=== PATIENT | female | born 1985 | race African-American/Black ===

== ENCOUNTER 2024-02-11 08:31 | Inpatient (IN) | payer SELFPAY ==
[~2024-02-11] VITALS: Ht 165.1 cm; Wt 48.1 kg
[2024-02-11] MEDS: ONDANSETRON HCL 4MG/2ML INJ IV STA (09:39)
[2024-02-11] MEDS: MORPHINE SULFATE 4 MG/ML INJ (FOR IV/IM USE) IV STA (09:39)
[2024-02-11 09:41] LABS: BASOPHILS % 2.2 % (0.0-2.0); CHLORIDE 110 mEq/L (98-107); EOSINOPHILS % 0.7 % (0.0-5.0); HEMOGLOBIN. 12.1 g/dL (12.0-16.0); LYMPHOCYTES % 25.7 % (20.0-50.0); MEAN CORPUSCULAR HEMOGLOBIN 29.1 pg (28.0-32.0); MEAN CORPUSCULAR HGB CONC 32.6 g/dL (31.0-37.0); MEAN CORPUSCULAR VOLUME 89.2 fL (81.0-99.0); MEAN PLATELET VOLUME 9.8 fl (7.4-10.4); MONOCYTES % 6.2 % (2.0-8.0); NEUTROPHILS % 65.2 % (40.0-76.0); PLATELET 273 x1000/uL (130-400); POTASSIUM 3.6 mEq/L (3.5-5.1); RED BLOOD CELL COUNT 4.15 mill/uL (4.2-5.4); RED CELL DISTRIBUTION WIDTH 14.9 % (11.6-14.6); SODIUM 141 mEq/L (136-145); WHITE BLOOD COUNT 4.6 x1000/uL (4.5-11.0)
[2024-02-11 09:42] LABS: CALCIUM 9.5 mg/dL (8.7-10.4); CARBON DIOXIDE 21 mEq/L (21-32)
[2024-02-11 09:47] LABS: CREATININE 0.8 mg/dL (0.6-1.0); GLUCOSE 123 mg/dL (70-105); UREA NITROGEN BLOOD 10 mg/dL (9-23)
[2024-02-11 09:49] LABS: ALANINE AMINOTRANSFERASE 8 IU/L (10-49); ASPARTATE AMINOTRANSFERASE 17 IU/L (<34); BILIRUBIN DIRECT 0.2 mg/dL (<=3.0); BILIRUBIN TOTAL 0.9 mg/dL (0.1-1.0); PROTEIN TOTAL 7.3 g/dL (6.0-8.3)
[2024-02-11 09:53] LABS: CLARITY URINE CLOUDY (CLEAR); COLOR URINE YELLOW (YELLOW); GLUCOSE URINE NEGATIVE (NEGATIVE); KETONES URINE NEGATIVE (NEGATIVE); LEUKOCYTE ESTERASE URINE 1+ (NEGATIVE); NITRITE URINE NEGATIVE (NEGATIVE); OCCULT BLOOD URINE 2+ (NEGATIVE); PH URINE 7.5 (4.5-8.0); PROTEIN URINE TRACE (NEGATIVE); SPECIFIC GRAVITY URINE 1.021 (1.005-1.030); UROBILINOGEN URINE 0.2 E.U./dL (0.2-1.0)
[2024-02-11 10:03] LABS: HCG SCREEN NEGATIVE
[2024-02-11 10:19] LABS: BACTERIA URINE 2+; MUCUS URINE TRACE /lpf (< = 2+); SQUAMOUS EPITHELIAL CELL URINE 3+ /lpf (RARE/1+)
[2024-02-11 10:20] LABS: WBC URINE 0-2 /hpf (0-2)
[2024-02-11] MEDS: KETOROLAC 30MG/ML VIAL IV ONE (11:23)
[2024-02-11] MEDS: IOHEXOL-300 100 ML BOTTLE ONE (11:28)
[2024-02-11 12:21] LABS: PROTHROMBIN TIME 11.1 sec (9.6-11.0)
[2024-02-11] MEDS: ONDANSETRON HCL 4MG/2ML INJ IV ONE (14:02)
[2024-02-11] MEDS: MORPHINE SULFATE 4 MG/ML INJ (FOR IV/IM USE) IV ONE (14:02)
[2024-02-11] MEDS ORDERED: HYDROCODONE/ACETAMINOPHEN 5/325MG TABLET PO PRN (18:00)
[2024-02-11] MEDS: SODIUM CHLORIDE 0.9% 1,000 ML IV SCH (18:15)
[2024-02-11] MEDS: CEFTRIAXONE 1GM/50ML 50 ML IV SCH (19:00)
[2024-02-11] MEDS ORDERED: NALOXONE HCL 0.4MG/ML VIAL IV PRN (19:15)
[2024-02-11 19:30] VITALS: BP 128/71; PULSE 60; RESP 20; TEMP 97.9
[2024-02-11 20:00] VITALS: BP 128/71; PULSE 60; RESP 20; TEMP 97.9
[2024-02-12] VITALS: BP 93/63; PULSE 60; RESP 18; TEMP 98.6
[2024-02-12 04:00] VITALS: BP 120/68; PULSE 62; RESP 19; TEMP 98.3
[2024-02-12 08:00] VITALS: BP 91/57; PULSE 64; RESP 20; TEMP 97.8
[2024-02-12] MEDS: TAMSULOSIN HCL 0.4MG SR CAPSULE PO SCH (08:38)
[2024-02-12 12:00] VITALS: BP 98/59; PULSE 68; RESP 20; TEMP 97.5
[2024-02-12 16:00] VITALS: BP 103/58; PULSE 61; RESP 20; TEMP 97.4
[2024-02-12 19:06] LABS: CLARITY URINE CLEAR (CLEAR); COLOR URINE ORANGE (YELLOW); GLUCOSE URINE NEGATIVE (NEGATIVE); KETONES URINE NEGATIVE (NEGATIVE); LEUKOCYTE ESTERASE URINE NEGATIVE (NEGATIVE); NITRITE URINE NEGATIVE (NEGATIVE); OCCULT BLOOD URINE 3+ (NEGATIVE); PROTEIN URINE NEGATIVE (NEGATIVE); SPECIFIC GRAVITY URINE 1.008 (1.005-1.030); UROBILINOGEN URINE 0.2 E.U./dL (0.2-1.0)
[2024-02-12] MEDS ORDERED: IPRATROPIUM/ALBUTEROL 0.5-3(2.5)MG/3ML NEB HHN PRN (19:15)
[2024-02-12] MEDS ORDERED: KETOROLAC 30MG/ML VIAL IV PRN (19:15)
[2024-02-12] MEDS ORDERED: CLONIDINE 0.1MG TABLET PO PRN (19:15)
[2024-02-12] MEDS ORDERED: ONDANSETRON HCL 4MG/2ML INJ IV PRN (19:15)
[2024-02-12] MEDS ORDERED: ACETAMINOPHEN 325MG TABLET PO PRN (19:15)
[2024-02-12 19:17] LABS: *AMPHETAMINES SCREEN URINE NEGATIVE (NEGATIVE); *BARBITURATES SCREEN URINE NEGATIVE (NEGATIVE); *BENZODIAZEPINES SCREEN URINE NEGATIVE (NEGATIVE); *COCAINE SCREEN URINE NEGATIVE (NEGATIVE); METHADONE URINE SCREEN NEGATIVE (NEGATIVE); OPIATES URINE SCREEN NEGATIVE (NEGATIVE)
[2024-02-12 19:18] LABS: CANNABINOID URINE SCREEN NEGATIVE (NEGATIVE); ECSTASY MDMA SCREEN URINE NEGATIVE (NEGATIVE); PHENCYCLIDINE URINE SCREEN NEGATIVE (NEGATIVE)
[2024-02-12 20:00] VITALS: BP 104/61; PULSE 61; RESP 18; TEMP 98.1
[2024-02-12 21:01] LABS: BACTERIA URINE TRACE; RBC URINE TNTC /hpf (0-2); SQUAMOUS EPITHELIAL CELL URINE RARE /lpf (RARE/1+); WBC URINE 0-2 /hpf (0-2)
[2024-02-13] VITALS: BP 93/41; PULSE 65; RESP 18; TEMP 97.9
[2024-02-13 04:00] VITALS: BP 106/69; PULSE 98; RESP 18; TEMP 97.9
[2024-02-13] MEDS: DOCUSATE SODIUM 100MG CAPSULE PO PRN (09:56)
[2024-02-13] MEDS: ACETAMINOPHEN 325MG TABLET PO PRN (09:59)
[2024-02-13 12:00] VITALS: BP 96/61; PULSE 66; RESP 17; TEMP 97.8
[2024-02-13] MEDS ORDERED: TAMS-11 MT (15:42)
[2024-02-13 16:00] VITALS: BP 112/65; PULSE 65; RESP 20; TEMP 97.3
[2024-02-13 16:48] VITALS: BP 112/65; PULSE 65; TEMP 97.3; O2SAT 99
[2024-02-13 20:00] VITALS: BP 103/66; PULSE 67; RESP 18; TEMP 97
== END 2024-02-13 20:35 | disposition home or self-care (01) | DRG 463 ==
LOC: ER 08:31 → 5WST 13:53 → EDBEDREQTM 13:56 → EDBEDREQ 13:56 → ER 15:42 → 6WST 17:16
PROVIDERS: ADMIT Internal Medicine; ATTEND Internal Medicine
DX: N13.6 Pyonephrosis (principal)
CPT/HCPCS: 36415; 74177; 80048; 80076; 80305; 81003; 84703; 85025; 99285; C1893; J0696; J1885; J2270; J2405; J7030; Q9967